=== PATIENT | male | born 1930 | race Caucasian/White ===

== ENCOUNTER 2016-04-21 11:39 | Day surgery (SDC) | payer MEDICARE, BC ==
[~2016-04-21 11:39] MED LIST: Lactated Ringers 1,000 ML IV SCH; Lidocaine 1%/Sod Bicarbonate in NS 8.4% 1 ML Syringe IV PRN; Sodium Chloride 0.9% 10 ML Syringe FLUSH PRN
--- NOTE | 2016-04-21 12:59 | PCM.PREANE ---
Preanesthetic Assessment - ANESTHESIA/TRANSFUSION/FAMILY HX Anesthesia/Transfusion History: No Prior Transfusion(s), Prior Anesthesia Family History of Anesthesia Reaction: No - REVIEW OF SYSTEMS Constitutional: Reports: no symptoms HAT LINER: Reports: no symptoms Respiratory: Reports: shortness of breath Cardiovascular: Reports: dyspnea on exertion (short of breath walking 2 flights of stairs, or 4 blocks, ) GI: Reports: no symptoms Other: Reports: diabetes - PHYSICAL ASSESSMENT HR: 63 O2 Sat by Pulse Oximetry: 93 RR: 20 BP: 144/62 Temp: 98.1 C Vital Signs: Last Vital Signs Temp 36.7 C 04/21/16 11:45 Pulse 63 04/21/16 11:45 Resp 20 04/21/16 11:45 BP 144/62 H 04/21/16 11:45 Pulse Ox 93 L 04/21/16 11:45 Height: 1.7 m Weight: 91.172 kg NPO Status Date: 04/21/16 NPO Status Time: 05:00 ASA Class: 3 Mental Status: alert & oriented x3 Airway Class: Mallampati = 3 Dentition: Reports: dentures Thyro-Mental Finger Breadths: 2 Mouth Opening Finger Breadths: 4 ROM/Head Extension: full Respiratory Status: lungs clear to auscultation bilaterally Cardiovascular Status: regular rate & rhythm, normal S1, S2, blood pressure WNL - LAB Values: Laboratory Last Values POC Glucose 163 mg/dL (83-110) H 04/21/16 12:16 - ALLERGIES Allergies/Adverse Reactions: Allergies Allergy/AdvReac Type Severity Reaction Status Date / Time No Known Allergies Allergy Verified 04/20/16 14:08 - BLOOD Blood Available: No - ANESTHESIA PLAN Preop Beta Chepe: Yes Beta Chepe: Metoprolol Beta-Chepe Last Dose Date: 04/21/16 Beta-Chepe Last Dose Time: 05:00 Anesthesia Type Planned: MAC - ACKNOWLEDGEMENTS Pt an appropriate candidate for the planned anesthesia: Yes Alternatives and risks of anesthesia discussed w pt/guardian: Yes Pt/Guardian understands and agree with anesthesia plan: Yes PreAnesthesia Questionnaire HEENT History: Reports: Impaired vision, Other (see below) Other HEENT History: retinopathy, glasses, hearing aids, dentures Cardiovascular History: Reports: Afib, High cholesterol, Pacemaker (patient reports no defibrillator, unable to find information card on pacemaker), Other ( see below) Other Cardiovascular History: heart disease, sick sinus syndrome Respiratory History: Reports: SOB Gastrointestinal History: Reports: GERD Genitourinary History: Reports: Prostate disorder OIL SPOT WASHER History: Reports: None Neurological History: Reports: Other (see below) Other Neuro History: menigitis Psychiatric History: Reports: None Endocrine/Metabolic History: Reports: Diabetes, type II Hematologic History: Reports: None Immunologic History: Reports: None Oncologic (Cancer) History: Reports: None Dermatologic History: Reports: None - Past Surgical History HEENT Surgical History: Reports: Cataract surgery Cardiovascular Surgical History: Reports: Coronary artery bypass GI Surgical History: Reports: Colonoscopy Other Female Surgeries/Procedures: cystoscopy x 5, urethral dilation, orchiectomy, radical prostatectomy Male Surgical History: Reports: Prostatectomy, Other (see below) Musculoskeletal Surgical History: Reports: Joint replacement, Other (see below) Other Musculoskeletal Surgeries/Procedures:: bilateral knee replacements - SUBSTANCE USE Smoking Status *Q: Former Smoker Recreational Drug Use History: No - HOME MEDS Home Medications: Home Meds Albuterol [Proventil HFA] 1 - 2 puff INH QID PRN 04/20/16 [History] Allopurinol [Allopurinol] 200 mg PO DAILY 04/20/16 [History] Cholecalciferol (Vitamin D3) [Vitamin D3] 2,000 unit PO DAILY 04/20/16 [History] Dabigatran Etexilate Mesylate [Pradaxa] 75 mg PO DAILY 04/20/16 [History] Fluticasone/Salmeterol [Advair Diskus 250-50] 1 puff INH BEDTIME 04/20/16 [ History] Insulin Glarg,Human.Rec.Analog [LantUS Solostar] 20 units SQ BEDTIME 04/20/16 [ History] Insulin Regular, Human [NovoLIN R] 8 units SQ TID 04/20/16 [History] Metoprolol Tartrate [Lopressor] 50 mg PO BID 04/20/16 [History] Pantoprazole Sodium [Protonix] 40 mg PO DAILY 04/20/16 [History] Simvastatin [Simvastatin] 40 mg PO DAILY 04/20/16 [History] - CURRENT (IN HOUSE) MEDS Current Meds: Current Medications Lactated Ringer's (Ringers, Lactated) 1,000 mls @ 125 mls/hr IV ASDIRECTED ANGELA Stop: 04/21/16 23:00 Last Admin: 04/21/16 12:00 Dose: 125 mls/hr Lidocaine/Sodium Bicarbonate (Buffered Lidocaine 1% In Ns 8.4%) 0.25 ml IV ONETIME PRN PRN Reason: Prior to IV Start Stop: 04/21/16 18:00 Last Admin: 04/21/16 11:59 Dose: 0.25 ml Sodium Chloride (Saline Flush) 10 ml FLUSH ASDIRECTED PRN PRN Reason: Keep Vein Open Stop: 04/21/16 18:00
[2016-04-21] MEDS ORDERED: Sodium Chloride 0.9% 50 ML SDV ONE (13:12)
[2016-04-21] MEDS ORDERED: Lidocaine 1% 4 ML ONE (13:40)
[2016-04-21] MEDS ORDERED: Propofol 200 MG/20 ML SDV ONE ×2 (13:40→13:41)
[2016-04-21] MEDS: Lidocaine 1% 50 ML MDV ONE ×2 (14:20→14:33)
[2016-04-21] MEDS ORDERED: ceFAZolin 1 GM Vial ONE (14:31)
[2016-04-21] MEDS ORDERED: Phenylephrine/Normal Saline 100 MCG/ML 10 ML Syringe ONE (14:42)
--- NOTE | 2016-04-21 15:02 | PCM.OPNOTE ---
- General Post-Op/Procedure Note Date of Surgery/Procedure: 04/21/16 Operative Procedure(s): placement of rt subclavian port a cath Pre Op Diagnosis: metastatic prostate cancer Post-Op Diagnosis: Same Anesthesia Technique: MAC Primary Surgeon: Javad Gaona EBL in mLs: 0 Complications: None Condition: Good
--- NOTE | 2016-04-21 15:11 | PCM48HPAN ---
Post Anesthesia Note - EVALUATION WITHIN 48HRS OF ANESTHETIC Vital Signs in Normal Range: Yes Patient Participated in Evaluation: Yes Respiratory Function Stable: Yes Airway Patent: Yes Cardiovascular Function Stable: Yes Hydration Status Stable: Yes Pain Control Satisfactory: Yes Nausea and Vomiting Control Satisfactory: Yes Mental Status Recovered: Yes
--- NOTE | 2016-04-21 15:43 | CR ---
Chest: Portable view of the chest was obtained. Comparison: No previous chest x-ray. Patchy increased lung markings are seen within both sides of the chest with some nodularity noted on both sides. Heart size is normal. Upper mediastinum is normal. Right-sided Port-A-Cath is seen with tip lying near the right atrial and superior vena cava junction. Pacemaker is seen. Bony structures are grossly intact. No pneumothorax is seen. Impression: 1. Patchy increased lung markings within both sides of the chest with areas of vague nodularity. Please correlate if etiology of this finding is known. Difficult to exclude metastatic disease or infection. 2. Port-A-Cath with tip lying in the right atrium and superior vena cava junction. Diagnostic code #3
--- NOTE | 2016-04-21 15:43 | CR ---
Fluoroscopy of chest Three fluoroscopic spot views were obtained of the chest utilizing C-arm device. Pacemaker is noted. Port-A-Cath line appears to be present. Distal end is difficult to see but appears to lie within the superior vena cava. Fluoroscopy time given is 56.7 seconds. Impression: 1. Findings as described above. Diagnostic code #2
[2016-04-21 16:42] VITALS: BP 134/71
--- NOTE | 2016-04-24 08:22 | OR ---
DATE OF OPERATION: 04/21/2016 SURGEON: Javad Gaona MD PREOPERATIVE DIAGNOSIS: Metastatic prostate cancer. POSTOPERATIVE DIAGNOSIS: Metastatic prostate cancer. OPERATION PERFORMED: Placement of a port in the right subclavian vein. ANESTHESIA: IV sedation local anesthetic. DESCRIPTION OF PROCEDURE: The patient was taken operating room, placed in a supine position, connected to monitoring equipment and given IV sedation. Antibiotics given and patient was positioned on the table with a roll between the shoulder. The right subclavian area was then prepped with Betadine, draped off in a sterile fashion. The skin was anesthetized with 1% Xylocaine and using a Cook needle, the right subclavian vein was cannulated. A wire was then inserted and it was followed down into the inferior vena cava. A small floridalma was made in the skin and over the wire a vein dilator and breakaway sheath was threaded. The dilator was removed and catheter previous repaired with saline. Silastic catheter was then inserted into the superior vena cava and breakaway sheath was removed. Using fluoroscopy, it was positioned in the superior vena cava. A pocket was then made and suture ligation was used to control any bleeding and the catheter was then tunneled to the pocket and it was then trimmed and connected to the previously prepared Bard port. This was MR compatible. Catheter was then connected to the port. The port was then secured to the catheter with a locking mechanism and was placed in the port. The subcuticular tissue was then closed. A needle was inserted into the port and aspirated and then saline was used to irrigate the catheter, this was followed by heparinized saline. The remaining subcuticular tissue was closed with interrupted 3-0 Vicryl suture and this was followed by closure of the dermis with a running subdermal 4-0 Dexon suture. Steri-Strips and sterile dressing placed. The patient tolerated the procedure and sent to recovery room in a stable condition. ESTIMATED BLOOD LOSS: MMODAL /[id number]
--- NOTE | 2016-04-24 08:22 | OR ---
DATE OF OPERATION: 04/21/2016 SURGEON: Javad Gaona MD ADDENDUM: ESTIMATED BLOOD LOSS: 0 mL. MMODAL /[id number]
== END 2016-04-21 16:40 | disposition home or self-care (01) ==
LOC: JD.SDS 11:39
PROVIDERS: ATTEND Surgery
PROC: 02HV33Z Insertion of Infusion Device into Superior Vena Cava, Percutaneous Approach (ICD-10-PCS; principal; 2016-04-21)
DX: C61 Malignant neoplasm of prostate (principal); I25.10 Atherosclerotic heart disease of native coronary artery without angina pectoris; I48.2 Chronic atrial fibrillation; E78.5 Hyperlipidemia, unspecified; E11.40 Type 2 diabetes mellitus with diabetic neuropathy, unspecified; E11.319 Type 2 diabetes mellitus with unspecified diabetic retinopathy without macular edema; E78.00 Pure hypercholesterolemia, unspecified; I49.5 Sick sinus syndrome; Z85.51 Personal history of malignant neoplasm of bladder; Z87.891 Personal history of nicotine dependence; Z80.42 Family history of malignant neoplasm of prostate; Z95.0 Presence of cardiac pacemaker; Z96.653 Presence of artificial knee joint, bilateral; Z95.1 Presence of aortocoronary bypass graft; Z98.49 Cataract extraction status, unspecified eye; Z90.79 Acquired absence of other genital organ(s); Z98.890 Other specified postprocedural states; Z79.4 Long term (current) use of insulin; Z79.51 Long term (current) use of inhaled steroids; Z79.899 Other long term (current) drug therapy
CPT/HCPCS: 36561; 71010; 77001; 82962; 93005; J0690; J1642; J7120; 00532; C1788; J2704

== ENCOUNTER 2016-05-24 14:34 | Emergency (ER) | payer MEDICARE, BC ==
[2016-05-24] MEDS ORDERED: 50% Dextrose in Water 50 ML Syringe IVPUSH STA (14:38)
[2016-05-24] MEDS ORDERED: 50% Dextrose in Water 50 ML Syringe ONE (14:39)
--- NOTE | 2016-05-24 14:50 | EDM.PDOC ---
ED HPI NEURO - General Chief Complaint: Neuro Symptoms/Deficits Stated Complaint: POSS. STROKE Time Seen by Provider: 05/24/16 14:34 Source of Information: Reports: Family History Limitations: Reports: Altered mental status (Patient presents unresponsive.) - History of Present Illness INITIAL COMMENTS - FREE TEXT/NARRATIVE: 86-year-old male presents to the ED in a private vehicle unresponsive. Stroke alert was called. Patient is a known insulin-dependent diabetic for many years. He is currently receiving radiotherapy and chemotherapy for metastatic prostate cancer. At present he is suffering severe diarrhea and was at the infusion clinic at [place] this morning for half dose of medication and the second half is to be given this afternoon. We found out this was octreotide 50 mcg. He has a Port-A-Cath right upper anterior chest. Blood sugar done immediately by triage nurse identified it should be only 30. Blood was drawn from his Port-A- Cath and he was given an amp of D. 50. Responded somewhat to this obesity did speak although he still mumbles and he is still extremely weak in all his limbs. I question whether he could have had a seizure precipitated by hypothalamic glycemic reaction. Apparently he takes his long-acting insulin in the evenings. His sugar this morning was 85. Blood sugar at noon or 11:00 was 108-8 units of Humalog insulin. Note the patient is losing weight and I wonder if his sliding scale needs to be adjusted. He ate about 11:15 and it was about a half a cup of stool. He is with his daughter and and they went to the mall and left them alone in the vehicle for approximately 45 minutes or so. When they return to the vehicle they found him in his unresponsive state. They drove him to the hospital. Symptom Onset Date: 05/24/16 Symptom Onset Time: 14:10 (Unclear how long he may have been hypoglycemic.) Timing/Duration: Reports: Minutes: Location (Neuro Complaint): Reports: generalized (Unresponsive and not able to move any extremities. Staring in one position with no gaze palsy. Mouth agape. Moving air very poorly to both lungs.) Quality (Neuro Complaint): Reports: other (Initially he could not speak he was unresponsive) Severity: severe Improves with: Reports: Other (Started to improve right after he got an amp of dextrose 50%.) Context, General: Reports: Other (Hypoglycemic reaction. Query seizure precipitated by hypoglycemia .) Associated Symptoms: Reports: seizure (Highly suspect but nobody witnessed this. ), malaise, loss of appetite. Denies: fever/chills, diaphoresis, nausea/ vomiting Treatments RN ACLS: Reports: Other (see below) (None) - Related Data Allergies/ADRs: Allergies Allergy/AdvReac Type Severity Reaction Status Date / Time No Known Allergies Allergy Verified 04/20/16 14:08 Home Meds: Home Meds Albuterol [Proventil HFA] 1 - 2 puff INH QID PRN 04/20/16 [History] Allopurinol [Allopurinol] 200 mg PO DAILY 04/20/16 [History] Cholecalciferol (Vitamin D3) [Vitamin D3] 2,000 unit PO DAILY 04/20/16 [History] Dabigatran Etexilate Mesylate [Pradaxa] 75 mg PO DAILY 04/20/16 [History] Fluticasone/Salmeterol [Advair Diskus 250-50] 1 puff INH BEDTIME 04/20/16 [ History] Insulin Glarg,Human.Rec.Analog [LantUS Solostar] 20 units SQ BEDTIME 04/20/16 [ History] Insulin Regular, Human [NovoLIN R] 8 units SQ TID 04/20/16 [History] Metoprolol Tartrate [Lopressor] 50 mg PO BID 04/20/16 [History] Pantoprazole Sodium [Protonix] 40 mg PO DAILY 04/20/16 [History] Simvastatin [Simvastatin] 40 mg PO DAILY 04/20/16 [History] Atropine/Diphenoxylate [Lomotil 0.025-2.5 MG] 1 tab PO QID PRN 05/24/16 [History ] Ondansetron [Zofran ODT] 8 mg PO ASDIRECTED PRN 05/24/16 [History] Prednisone [IJD: Prednisone] 10 mg PO QAM 05/24/16 [History] Prochlorperazine [Compazine] 10 mg PO QID 05/24/16 [History] Wheat Dextrin [Benefiber] 3 tsp PO DAILY 05/24/16 [History] Past Medical History HEENT History: Reports: Impaired vision, Other (see below) Other HEENT History: retinopathy, glasses, hearing aids, dentures Cardiovascular History: Reports: Afib (Is currently on Pradaxa for this.), High cholesterol, Pacemaker (patient reports no defibrillator, unable to find information card on pacemaker), Other (see below) Other Cardiovascular History: heart disease, sick sinus syndrome Respiratory History: Reports: SOB Gastrointestinal History: Reports: GERD Genitourinary History: Reports: Prostate disorder RF TECHNICIAN History: Reports: None Neurological History: Reports: Other (see below) Other Neuro History: menigitis Psychiatric History: Reports: None Endocrine/Metabolic History: Reports: Diabetes, type II Hematologic History: Reports: None Immunologic History: Reports: None Oncologic (Cancer) History: Reports: Prostate (Metastatic prostate cancer to bones and lungs. Initial diagnosis May 27 years ago where he and he underwent a radical prostatectomy. A few years later he had a spot of his bladder which was felt to represent a recurrence. He had radiotherapy at that time. Discovered to have metastatic disease about 8 weeks ago. He has completed 4 weeks of chemotherapy where he goes one day per week. This would've been his fifth week but it was canceled due to his current weight state. His current diarrhea problems are felt to be secondary to the chemotherapy.) Dermatologic History: Reports: None - Past Surgical History HEENT Surgical History: Reports: Cataract surgery Cardiovascular Surgical History: Reports: Coronary artery bypass GI Surgical History: Reports: Colonoscopy Other Female Surgeries/Procedures: cystoscopy x 5, urethral dilation, orchiectomy, radical prostatectomy Male Surgical History: Reports: Prostatectomy (Radical prostatectomy about 27 years ago.), Other (see below) Musculoskeletal Surgical History: Reports: Joint replacement, Other (see below) Other Musculoskeletal Surgeries/Procedures:: bilateral knee replacements Social & Family History - Tobacco Use Smoking Status *Q: Former Smoker Month Tobacco Last Used: 1953 - Recreational Drug Use Recreational Drug Use: No Drug Use in Last 12 Months: No - Living Situation & Occupation Living situation: Reports: Occupation: retired ED ROS GENERAL - Review of Systems Review Of Systems: See Below (Unable to obtain initially.) Constitutional: Reports: malaise, weakness, fatigue, decreased appetite, weight loss. Denies: fever, chills HEENT: Reports: Glasses, Hearing loss Respiratory: Reports: Shortness of Breath, Cough (Chronic cough has COPD.) Cardiovascular: Reports: Blood pressure problem. Denies: Chest pain, Claudication (Is been running lower than normal.), Orthopnea GI/Abdominal: Reports: Diarrhea : Reports: frequency Musculoskeletal: Reports: shoulder pain, back pain Skin: Reports: bruising (Oozes very easily due to being on Pradaxa. ) Neurological: Reports: Difficulty Walking, Weakness ED EXAM, NEURO - Physical Exam Exam: See Below Exam Limited By: Altered mental status (He arrived unresponsive unable to speak with mouth agape and inability to move any of his extremities.) General Appearance: obtunded, other (Ruborous complexion.) Eye Exam: bilateral eye: normal inspection (No gaze palsy. Staring straight ahead.) Throat/Mouth: Normal inspection, Normal oropharynx, Other Head Exam: atraumatic (Mouth and tongue are fairly dry.), normocephalic Neck: normal inspection, supple, non-tender, full range of motion. No: lymphadenopathy (L), lymphadenopathy (R) Respiratory/Chest: decreased breath sounds (Severe to the lower 50% of lung calabrese very shallow anterior breasts.). No: normal breath sounds (Initial breath sounds were extremely weak but rate returned to near normal after receiving an amp of dextrose 50%.), rhonchi, wheezing Cardiovascular: no edema, no murmur, no rub, irregularly irregular (Heart rate is irregular irregular compatible with age fibrillation which family reports she 's been in for many years. He is about 60 per minute he has a pacemaker in place.). No: normal peripheral pulses GI/Abdominal: soft, non tender, no distention Neurological: other (Completely unresponsive initially with no reflexes present. ). No: Babinski DTR: 0: bicep (R), bicep (L), tricep (R), tricep (L), patella (R), patella (L), achilles (R), achilles (L) Back Exam: normal inspection Extremities: normal inspection, no pedal edema, other (Evidence of a stricture changes both knees and both hips have loss of range of motion.). No: normal range of motion, non-tender Skin Exam: Warm, Dry, Intact, Cool. No: Diaphoretic EKG INTERPRETATION EKG Date: 05/24/16 Time: 14:10 Rhythm: other (He is 100% paced with a anterior paced rhythm at 60 per minute. Underlying rhythm appears to be atrial flutter atrial fib.) Rate (beats/min): 60 [place]: normal P-wave: absent QRS: wide EKG Interpretation Comments: No further analysis attempted due to to paced rhythm Course - Vital Signs Last Recorded V/S: Last Vital Signs Temp 36.3 C 05/24/16 14:45 Pulse 74 05/24/16 18:03 Resp 13 05/24/16 14:45 BP 101/61 05/24/16 18:03 Pulse Ox 98 05/24/16 18:03 - Orders/Labs/Meds Orders: Active Orders 24 hr Category Date Time Status Blood Glucose Check, Bedside [RC] ONETIME Care 05/24/16 15:20 Active Blood Glucose Check, Bedside [RC] ONETIME Care 05/24/16 17:00 Active EKG Documentation Completion [RC] STAT Care 05/24/16 14:53 Active Labs: Laboratory Tests 05/24/16 05/24/16 05/24/16 Range/Units 14:40 14:40 14:40 WBC 7.62 (4.23-9.07) K/mm3 RBC 4.33 L (4.63-6.08) M/mm3 Hgb 12.8 L (13.7-17.5) gm/L Hct 39.9 L (40.1-51.0) % MCV 92.1 (79.0-92.2) fl MCH 29.6 (25.7-32.2) pg MCHC 32.1 L (32.2-35.5) g/dl RDW Std Deviation 55.9 H (35.1-43.9) fL Plt Count 240 (163-337) K/mm3 MPV 12.4 H (9.4-12.3) fl Neutrophils % (Manual) 35 L (40-60) % Band Neutrophils % 0 (0-10) % Lymphocytes % (Manual) 62 H (20-40) % Atypical Lymphs % 0 % Monocytes % (Manual) 2 (2-10) % Eosinophils % (Manual) 0 L (0.8-7.0) % Basophils % (Manual) 1 (0.2-1.2) Platelet Estimate Adequate Polychromasia Few Poikilocytosis 1+ slight Anisocytosis 2+ moderate Ovalocytes 2+ moderate RBC Morph Comment Not Reportable Sodium 144 (136-145) mEq/L Potassium 4.2 (3.5-5.1) mEq/L Chloride 108 H (98-107) mEq/L Carbon Dioxide 28 (21-32) mEq/L Anion Gap 12.2 (5-15) BUN 35 H (7-18) mg/dL Creatinine 2.0 H (0.7-1.3) mg/dL Est Cr Clr Drug Dosing 23.02 mL/min Estimated GFR (MDRD) 32 (>60) mL/min BUN/Creatinine Ratio 17.5 (14-18) Glucose 22 L* (83-115) mg/dL POC Glucose (83-110) mg/dL Calcium 8.5 (8.5-10.1) mg/dL Total Bilirubin 0.5 (0.2-1.0) mg/dL AST 34 (15-37) U/L ALT 31 (16-63) U/L Alkaline Phosphatase 176 H (46-116) U/L C-Reactive Protein 6.1 H* (<1.0) mg/dL B-Natriuretic Peptide 472 H (0-100) pg/mL Total Protein 5.8 L (6.4-8.2) g/dl Albumin 2.6 L (3.4-5.0) g/dl Globulin 3.2 gm/dL Albumin/Globulin Ratio 0.8 L (1-2) 05/24/16 Range/Units 14:42 WBC (4.23-9.07) K/mm3 RBC (4.63-6.08) M/mm3 Hgb (13.7-17.5) gm/L Hct (40.1-51.0) % MCV (79.0-92.2) fl MCH (25.7-32.2) pg MCHC (32.2-35.5) g/dl RDW Std Deviation (35.1-43.9) fL Plt Count (163-337) K/mm3 MPV (9.4-12.3) fl Neutrophils % (Manual) (40-60) % Band Neutrophils % (0-10) % Lymphocytes % (Manual) (20-40) % Atypical Lymphs % % Monocytes % (Manual) (2-10) % Eosinophils % (Manual) (0.8-7.0) % Basophils % (Manual) (0.2-1.2) Platelet Estimate Polychromasia Poikilocytosis Anisocytosis Ovalocytes RBC Morph Comment Sodium (136-145) mEq/L Potassium (3.5-5.1) mEq/L Chloride (98-107) mEq/L Carbon Dioxide (21-32) mEq/L Anion Gap (5-15) BUN (7-18) mg/dL Creatinine (0.7-1.3) mg/dL Est Cr Clr Drug Dosing mL/min Estimated GFR (MDRD) (>60) mL/min BUN/Creatinine Ratio (14-18) Glucose (83-115) mg/dL POC Glucose 175 H (83-110) mg/dL Calcium (8.5-10.1) mg/dL Total Bilirubin (0.2-1.0) mg/dL AST (15-37) U/L ALT (16-63) U/L Alkaline Phosphatase (46-116) U/L C-Reactive Protein (<1.0) mg/dL B-Natriuretic Peptide (0-100) pg/mL Total Protein (6.4-8.2) g/dl Albumin (3.4-5.0) g/dl Globulin gm/dL Albumin/Globulin Ratio (1-2) Meds: Medications Discontinued Medications Generic Name Dose Route Start Last Admin Trade Name Freq PRN Reason Stop Dose Admin Dextrose/Water 50 ml 05/24/16 15:37 05/24/16 15:33 Dextrose 50% In Water IVPUSH 05/24/16 15:38 50 ml ASDIRECTED ONE Administration Dextrose/Water 50 ml 05/24/16 14:38 05/24/16 14:39 Dextrose 50% In Water IVPUSH 05/24/16 14:39 50 ml ASDIRECTED STA Administration Heparin Sodium (Porcine) 500 units 05/24/16 17:43 05/24/16 17:47 Heparin Lock Flush 100 Units/Ml Syringe FLUSH 05/24/16 17:44 500 units ASDIRECTED ONE Administration Heparin Sodium (Porcine) Confirm 05/24/16 17:44 05/24/16 17:58 Heparin Lock Flush 100 Units/Ml Syringe Administered 05/24/16 17:45 Not Given Dose 500 units .ROUTE .STK-MED ONE Dextrose/Sodium Chloride 1,000 mls @ 150 mls/hr 05/24/16 15:00 05/24/16 15:16 Dextrose 5%-Normal Saline IV 150 mls/hr ASDIRECTED ANGELA Administration - Radiology Interpretation Free Text/Narrative:: Initially resuscitated with access of his Port-A-Cath. Labs were initially drawn and he was given an amp of D50 which did provide return to cognitive function in terms that he was able to speak in multiple oblique. Still very flaccid extremities. Highly suspect that he suffered a seizure prior to arrival. He is not responding normally in terms of movement of his extremities after an amp of D50. Routine labs were collected due to his reported severe diarrhea. Fairly labs or stools samples yesterday for C. difficile. His ECG shows underlying atrial fib flutter rhythm but he is 100% paced with ventricular pacer. IV will be D5 normal saline at 150 mils per hour. Repeat blood sugar at 1520 hours. - Re-Assessments/Exams Free Text/Narrative Re-Assessment/Exam: 05/24/16 15:38 blood sugar done at 1520 hours is reported to be 88. Initial blood sugar at the lab was 22. He'll be given another amp of D50 percent. Patient is much more alert and able to converse and joke and laugh at this time. Moves all extremities without any focal neurological deficit. On further discussion it appears that he has lost between 26 and 30 pounds with his current illness and that his sliding scale has not been adjusted. Therefore I will adjust his sliding scale prior to his discharge home today. He'll stay in the ER for another hour and a half to make sure that his blood sugars stabilize since he is not hungry and has no desire to eat anything at this time. Of note the octreotide that he received this morning can cause hyperglycemia or hypoglycemia. Whether contributing to to today's current problems is unclear. I strongly suspect he had a seizure event creating prolonged postictal state and initial very poor response to the first amp of D50 percent. After 45 minutes to an hour he returned to his normal cognitive function state. Blood sugar will be checked at 1700 hours 05/24/16 17:30 1700 hour blood sugar is 168. Patient will therefore be discharged from the emergency department. I will change his sliding scale to try and prevent further hypoglycemic events. His and daughter indicate that he's been experiencing a lot more hypoglycemic events at home as well. It has been as low as 25 at home in the last few weeks. I am quite convinced that blood sugar of 22 when he arrived here had which precipitated a seizure and that 's why he took so long to return to normal cognitive function after receiving an amp of D50 percent dextrose. Departure - Departure Time of Disposition: 17:31 Disposition: Home, Self-Care 01 Condition: fair Clinical Impression: Insulin reaction Qualifiers: Encounter type: initial encounter Qualified Code(s): T38.3X5A - Adverse effect of insulin and oral hypoglycemic [antidiabetic] drugs, initial encounter Instructions: Hypoglycemia, [id number] Referrals: Obinna Manning MD [Primary Care Provider] - Forms: ED Department Discharge Additional Instructions: Evaluation in the emergency department today in regards to insulin reaction that was severe. It sugar on arrival here was only 22 anion highly suspicious that he suffered a hypoglycemic induced seizure. You're treated with a half of D50 but it took a good deal of time for it to perk you back up and usually we see a response within 3 minutes. However if you had a seizure which I highly suspect he did it would take 45 minutes to an hour for you to perk up and this is what happened. Sugar went up to 177 after the initial dose of dextrose but came back down to 88 within the hour. Therefore a second amp of D50 percent glucose was given. Last blood sugar at 5:00 was 168. Due to your nearly 30 pound weight loss in the last few months I strongly suggest decreasing your insulin usage with meals. Please try and follow the sliding scale that I have provided. If blood sugar is 120 or less no insulin. If blood sugar is 121 to 180 give 2 units of insulin. If blood sugar is 181-220 give 3 units of insulin. If blood sugar is 221to 260 take 4 units of insulin. If blood sugar is 261-300 take 5 units of insulin. If blood sugar is 301-350 take 6 units of insulin. Current medication octreotide that you're receiving intravenously may have been altering your blood sugar responses it can cause an elevation of blood sugar or a lower blood sugar. Please keep track of your blood sugars in no pad and take with you to your doctor at next appointment time. Currently will leave your basal lantus insulin at 20 units in the evening. - My Orders Last 24 Hours: My Active Orders 05/24/16 14:53 EKG Documentation Completion [RC] STAT 05/24/16 15:20 Blood Glucose Check, Bedside [RC] ONETIME 05/24/16 17:00 Blood Glucose Check, Bedside [RC] ONETIME - Assessment/Plan Last 24 Hours: My Active Orders 05/24/16 14:53 EKG Documentation Completion [RC] STAT 05/24/16 15:20 Blood Glucose Check, Bedside [RC] ONETIME 05/24/16 17:00 Blood Glucose Check, Bedside [RC] ONETIME
[2016-05-24] MEDS ORDERED: Dextrose 5%-0.9% NaCl 1,000 ML IV SCH (15:00)
[2016-05-24] MEDS ORDERED: 50% Dextrose in Water 50 ML Syringe IVPUSH ONE (15:37)
[2016-05-24 18:15] VITALS: BP 101/61
== END 2016-05-24 18:17 | disposition home or self-care (01) ==
LOC: JD.ED 14:34
DX: T38.3X5A Adverse effect of insulin and oral hypoglycemic [antidiabetic] drugs, initial encounter (principal); R41.82 Altered mental status, unspecified; H91.93 Unspecified hearing loss, bilateral; I48.91 Unspecified atrial fibrillation; E78.00 Pure hypercholesterolemia, unspecified; Z95.0 Presence of cardiac pacemaker; R06.02 Shortness of breath; I25.810 Atherosclerosis of coronary artery bypass graft(s) without angina pectoris; K21.9 Gastro-esophageal reflux disease without esophagitis; E11.9 Type 2 diabetes mellitus without complications; Z79.4 Long term (current) use of insulin; C61 Malignant neoplasm of prostate; C78.00 Secondary malignant neoplasm of unspecified lung; C79.51 Secondary malignant neoplasm of bone; Z96.653 Presence of artificial knee joint, bilateral; Z87.891 Personal history of nicotine dependence
CPT/HCPCS: 36415; 80053; 82962; 83880; 85025; 86140; 93005; 96361; 96374; 96376; 99285; J1642; J7042; J7060